=== PATIENT | male | born 1945 | race Caucasian/White ===

== ENCOUNTER 2021-12-11 20:16 | Emergency (ER) | payer BC, MEDICARE ==
[2021-12-11] MEDS ORDERED: diphenhydrAMINE 25 MG Cap PO ONE (22:23)
== END 2021-12-11 22:35 | disposition home or self-care (01) ==
LOC: JP.ED 20:16
DX: H69.82 Other specified disorders of Eustachian tube, left ear (principal)
CPT/HCPCS: 99282